=== PATIENT | male | born 1960 | race Two or more races ===

== ENCOUNTER 2023-08-31 16:31 | Inpatient (IN) | payer OTHER ==
[~2023-08-31] VITALS: Ht 188 cm; Wt 102.1 kg
[2023-08-31] MEDS ORDERED: TRIJARDY XR 251 EACH PO (18:11)
[2023-08-31] MEDS ORDERED: IRBESARTAN150 MG PO (18:12)
--- NOTE | 2023-08-31 18:18 | NUR ---
SE RECIBE PACIENTE ALERTA Y ORIENTADO X3. EL MISMO REFIERE VENIR POR PLAQUETAS EN 29, LABORATORIOS REALIZADOS EL LUISA DE HO. SE MIDEN S/V Y SE UBICA.
--- NOTE | 2023-08-31 20:08 | NUR ---
SE ORIENTA A PACIENTE Y FAMILIAR SOBRE TX MEDICO, REFIERE ENTENDER. SE REALIZAN MUESTRAS DE LABORATORIO BAJO MEDIDAS ASEPTICAS. PACIENTE MANEJADA POR MS.NOGUERA. PENDIENTE RE-EVALUACION MEDICA.
[2023-08-31 20:53] LABS: INR 1.05; PARTIAL THROMBOPLASTIN TIME 27.7 SECONDS (22.0-34.0)
[2023-08-31 21:03] LABS: ALBUMIN 4.2 gm/dL (3.4-5.0); BILIRUBIN TOTAL 0.61 mg/dL (0.3-1.2); CALCIUM 9.3 mg/dL (8.5-10.1); CREATININE SERUM 1.5 mg/dL (0.70-1.30); GFR 47.27; GLOBULINA 3.8 G/DL (2.4-3.5); POTASSIUM 4.57 mEq/L (3.5-5.1)
[2023-08-31 21:11] LABS: PH,URINE 5.5 (5.0-8.0); URINE APPEARANCE Clear; URINE BILIRRUBIN Negative (NEGATIVE); URINE BLOOD Negative; URINE COLOR Yellow; URINE LEUKOCYTE Negative; URINE NITRATE Negative; URINE PROTEIN Negative (NEGATIVE); URINE UROBILINOGEN 0.2 E.U./dl
[2023-08-31 21:16] LABS: URINE BACTERIA 1.2 uL (0.0-1933); URINE EPITHELIAL CELLS 0.3 uL (0.0-38.8); URINE GLUCOSE >=1000 MG/DL (NEGATIVE); URINE RBC 0.7 uL (0.0-20.8); URINE WBC 0.4 uL (0.0-23.2)
[2023-08-31 22:29] LABS: HEMATOCRIT 39.7 % (39.0-48.0); HEMOGLOBIN 13.4 g/dL (13-16.00); RED BLOOD COUNT 4.88 M/uL (4.00-6.00)
[2023-08-31 22:30] LABS: MEAN CELL VOLUME 81.4 fL (80.0-100.00); MEAN CORPUSCULAR HEMOGLOBIN 27.5 pg (27.00-32.0); MEAN CORPUSCULAR HGB CONC 33.8 g/dl (32.0-36.0)
[2023-08-31 22:36] LABS: PLATELET COUNT 30 K/uL (150-450)
[2023-08-31] MEDS ORDERED: 0.9 % SODIUM CHLORIDE 500 ML IV ONE (22:45)
--- NOTE | 2023-09-01 02:25 | NUR ---
SORIENTA A PTE SOBRE TX MEDICO Y EL MISMO REFIERE ENTENDER. SE LE ADMINISTRA A PTE MEDICAMENTO ELIZABETH ORDEN MEDICA BAJO MEDIDAS ASEPTICAS. PTE REFIERE NO QUERER QUE LE CANALICEN SEGUNDA VENA.
[2023-09-01 06:30] LABS: HEMATOCRIT 39.9 % (39.0-48.0); HEMOGLOBIN 13.4 g/dL (13-16.00); MEAN CELL VOLUME 80.2 fL (80.0-100.00); MEAN CORPUSCULAR HEMOGLOBIN 26.9 pg (27.00-32.0); MEAN CORPUSCULAR HGB CONC 33.6 g/dl (32.0-36.0); RED BLOOD COUNT 4.98 M/uL (4.00-6.00); RED CELL DISTRIBUTION WIDTH 15.1 % (11.5-14.5)
[2023-09-01 07:14] LABS: PLATELET COUNT 20 K/uL (150-450)
[2023-09-01 07:15] LABS: PLT IN CITRATE 21 K/uL (150-450)
--- NOTE | 2023-09-01 07:25 | NUR ---
SE RECIBE PTE MASCULINO DE 63 YRS ALERTA CONCIENTE Y TRANQUILO, EN SHELLIE CON BARBADAS ELEVADA. PTE OBSERVA PTE CON .9NSS A 125 ML HS.Y SE MANTIENEN EN ESPERA DE MEDICO CONSULTOR SPIKE RADFORD.SE LE NOTIFICA VALOR PANICO DE PLAQUIETAS A EL RUPERTO RADFORD. SE MANTIENE AL MOMENTO LULI DE DOLOR, SE MANTIENE BAJO OBSERVACION.
[2023-09-01] MEDS ORDERED: 0.9 % SODIUM CHLORIDE 1,000 ML IV SCH (10:00)
[2023-09-01] MEDS ORDERED: IRBESARTAN 150 MG TABLET PO SCH (10:02)
[2023-09-01] MEDS ORDERED: Cyanocobalamin/Mecobalamin 1 TAB.SL SL SCH (12:00)
[2023-09-01] MEDS ORDERED: ASCORBIC ACID 500 MG TABLET PO SCH (12:00)
[2023-09-01] MEDS ORDERED: MULTIVIT INFUSN,ADULT 4,VIT K 10 ML VIAL IV SCH (12:00)
[2023-09-01] MEDS ORDERED: VITAMIN B COMPLEX 1 EACH PO SCH (13:00)
[2023-09-01 13:32] LABS: ALBUMIN 4.2 gm/dL (3.4-5.0); BILIRUBIN TOTAL 0.63 mg/dL (0.3-1.2); CALCIUM 9.2 mg/dL (8.5-10.1); CREATININE SERUM 1.15 mg/dL (0.70-1.30); GFR 64.23; POTASSIUM 4.44 mEq/L (3.5-5.1); TOTAL PROTEIN 8.2 gm/dL (6.4-8.2)
[2023-09-01 13:47] LABS: COL ADP >300 SECONDS (56-102); COL EPI >300 SECONDS (82-175)
[2023-09-01 13:57] LABS: FERRITIN 251.8 NG/ML (26-388)
[2023-09-01 14:31] LABS: FOLIC ACID 14.77 ng/ml (4.78-20)
[2023-09-01] MEDS ORDERED: THIAMINE HCL 100 MG TABLET PO SCH (17:00)
[2023-09-01] MEDS ORDERED: FUROsemide 20 MG/2 ML VIAL IV SCH (18:30)
[2023-09-01 20:43] LABS: INR 1.02; PROTHROMBIN TIME 10.7 SECONDS (9.0-11.5)
[2023-09-01 21:42] LABS: HEMATOCRIT 40.5 % (39.0-48.0); HEMOGLOBIN 13.6 g/dL (13-16.00); MEAN CELL VOLUME 81.3 fL (80.0-100.00); MEAN CORPUSCULAR HEMOGLOBIN 27.2 pg (27.00-32.0); MEAN CORPUSCULAR HGB CONC 33.5 g/dl (32.0-36.0); RED BLOOD COUNT 4.98 M/uL (4.00-6.00); RED CELL DISTRIBUTION WIDTH 15.1 % (11.5-14.5)
[2023-09-01 21:51] LABS: COL ADP 263 SECONDS (56-102)
[2023-09-01 21:52] LABS: COL EPI >300 SECONDS (82-175)
[2023-09-01 21:55] LABS: PLATELET COUNT 21 K/uL (150-450)
[2023-09-02 15:16] LABS: PH,URINE 6.5 (5.0-8.0); URINE APPEARANCE Clear; URINE BILIRRUBIN Negative (NEGATIVE); URINE BLOOD Negative; URINE COLOR Yellow; URINE LEUKOCYTE Negative; URINE NITRATE Negative; URINE PROTEIN Negative (NEGATIVE); URINE UROBILINOGEN 0.2 E.U./dl
[2023-09-02 15:21] LABS: URINE RBC 3.3 uL (0.0-20.8)
[2023-09-02 15:38] LABS: BILIRUBIN TOTAL 0.64 mg/dL (0.3-1.2); BILIRUBIN,CONJUGATED 0.21 mg/dL (0.0-0.2); BILIRUBIN,UNCONJUGATED 0.43 mg/dL (0.0-0.6); TOTAL PROTEIN 7.3 gm/dL (6.4-8.2)
[2023-09-02 16:59] LABS: URINE BACTERIA 3.7 uL (0.0-1933); URINE GLUCOSE >=1000 MG/DL (NEGATIVE); URINE WBC 0.4 uL (0.0-23.2)
[2023-09-02 21:27] LABS: HEMATOCRIT 43.7 % (39.0-48.0); HEMOGLOBIN 14.6 g/dL (13-16.00); MEAN CELL VOLUME 81.5 fL (80.0-100.00); MEAN CORPUSCULAR HEMOGLOBIN 27.3 pg (27.00-32.0); MEAN CORPUSCULAR HGB CONC 33.4 g/dl (32.0-36.0); RED BLOOD COUNT 5.36 M/uL (4.00-6.00); RED CELL DISTRIBUTION WIDTH 15.2 % (11.5-14.5)
[2023-09-02 21:28] LABS: PLATELET COUNT 57 K/uL (150-450)
[2023-09-03 09:39] LABS: PLT IN CITRATE 48 K/uL (150-450)
[2023-09-03 10:39] LABS: PLATELET COUNT 44 K/uL (150-450)
[2023-09-04 06:49] LABS: PLT IN CITRATE 40 K/uL (150-450)
[2023-09-04 06:53] LABS: HEMATOCRIT 39.9 % (39.0-48.0); HEMOGLOBIN 13.7 g/dL (13-16.00); MEAN CELL VOLUME 79.7 fL (80.0-100.00); MEAN CORPUSCULAR HEMOGLOBIN 27.3 pg (27.00-32.0); MEAN CORPUSCULAR HGB CONC 34.2 g/dl (32.0-36.0); RED BLOOD COUNT 5.01 M/uL (4.00-6.00); RED CELL DISTRIBUTION WIDTH 15.4 % (11.5-14.5)
[2023-09-04 06:54] LABS: PLATELET COUNT 40 K/uL (150-450)
[2023-09-04 07:11] LABS: ALBUMIN 4.2 gm/dL (3.4-5.0); BILIRUBIN TOTAL 0.6 mg/dL (0.3-1.2); CALCIUM 9.4 mg/dL (8.5-10.1); CREATININE SERUM 1.11 mg/dL (0.70-1.30); GFR 66.91; GLOBULINA 3.3 G/DL (2.4-3.5); POTASSIUM 4.24 mEq/L (3.5-5.1); TOTAL PROTEIN 7.5 gm/dL (6.4-8.2)
[2023-09-04] MEDS ORDERED: BARIUM SULFATE 450 ML ORAL.SUSP PO NR (08:30)
[2023-09-04] MEDS ORDERED: PATIENTS OWN MEDICATION (MEDICAMENTO EN PISO) PO SCH (09:00)
[2023-09-04 11:49] LABS: COL ADP 80 SECONDS (56-102); COL EPI 143 SECONDS (82-175)
[2023-09-05] MEDS ORDERED: VITAMIN C500 M1 PO (17:42)
[2023-09-05] MEDS ORDERED: AVAPRO150 MG PO (17:42)
[2023-09-05] MEDS ORDERED: Neurin-Sl Tablet Sl SL (17:42)
[2023-09-05] MEDS ORDERED: B Complex PO (17:43)
[2023-09-05] MEDS ORDERED: THIAMINE HCL100 MG PO (17:43)
[2023-09-05] MEDS ORDERED: SYNJARDY XR 101 EACH PO (17:45)
[2023-09-05] MEDS ORDERED: SYNJARDY XR 251 EACH PO (18:06)
== END 2023-09-05 20:40 | disposition home or self-care (01) | DRG 813 ==
LOC: ER 16:32 → SEC-K 09-01 10:25 → SURH 09-01 10:25
PROVIDERS: Internal Medicine Hematology & Oncology; Nurse Practitioner Family; ADMIT Internal Medicine Cardiovascular Disease; ATTEND Internal Medicine Cardiovascular Disease
PROC: BW40ZZZ Ultrasonography of Abdomen (ICD-10-PCS; principal; 2023-09-01)
PROC: 30233R1 Transfusion of Nonautologous Platelets into Peripheral Vein, Percutaneous Approach (ICD-10-PCS; 2023-09-02)
PROC: BW21YZZ Computerized Tomography (CT Scan) of Abdomen and Pelvis using Other Contrast (ICD-10-PCS; 2023-09-04)
PROC: BW24YZZ Computerized Tomography (CT Scan) of Chest and Abdomen using Other Contrast (ICD-10-PCS; 2023-09-04)
PROC: BF2 Imaging, Hepatobiliary System and Pancreas, Computerized Tomography (CT Scan) (ICD-10-PCS; 2023-09-04)
DX: D69.6 Thrombocytopenia, unspecified (principal); K76.0 Fatty (change of) liver, not elsewhere classified; R16.1 Splenomegaly, not elsewhere classified; F10.20 Alcohol dependence, uncomplicated; I12.9 Hypertensive chronic kidney disease with stage 1 through stage 4 chronic kidney disease, or unspecified chronic kidney disease; E11.22 Type 2 diabetes mellitus with diabetic chronic kidney disease; N18.9 Chronic kidney disease, unspecified; Z79.4 Long term (current) use of insulin; M10.9 Gout, unspecified; H57.89 Other specified disorders of eye and adnexa

== ENCOUNTER → 2023-09-09 08:43 | Outpatient (CLI) | payer OTHER ==
[~2023-09-09 08:43] MED LIST: AVAPRO150 MG PO; B Complex PO; FAMOTIDINE20 MG PO; HUMALOG100 UNIT/2 SUBCUTANEO; IRBESARTAN150 MG PO; Lantus 1000 UNITS/10 SUBCUTANEO; Neurin-Sl Tablet Sl SL; RAYOS5 MG PO; SYNJARDY XR 101 EACH PO; SYNJARDY XR 251 EACH PO; THIAMINE HCL100 MG PO; TRIJARDY XR 251 EACH PO; VITAMIN C500 M1 PO
[2023-09-09 10:30] LABS: HEMATOCRIT 38.7 % (39.0-48.0); HEMOGLOBIN 12.9 g/dL (13-16.00); MEAN CELL VOLUME 80.1 fL (80.0-100.00); MEAN CORPUSCULAR HEMOGLOBIN 26.7 pg (27.00-32.0); MEAN CORPUSCULAR HGB CONC 33.3 g/dl (32.0-36.0); RED BLOOD COUNT 4.84 M/uL (4.00-6.00)
[2023-09-09 11:21] LABS: PLATELET COUNT 26 K/uL (150-450)
[2023-09-12 09:07] LABS: HEPATITIS A ANTIBODY IGG Negative (Negative); HEPATITIS A IGM Negative (Negative); HEPATITIS B CORE IGM Negative (Negative); HEPATITIS C VIRUS ANTIBODY Non Reactive (Non Reactive)
[2023-09-12 11:11] LABS: hav igm Negative (Negative); hcv Non Reactive (Non Reactive); hep b c Negative (Negative)
== END | disposition home or self-care (01) ==
LOC: LAB 08:43
PROVIDERS: ATTEND Internal Medicine Cardiovascular Disease
DX: B19.0 Unspecified viral hepatitis with hepatic coma (principal); B16.0 Acute hepatitis B with delta-agent with hepatic coma; D69.6 Thrombocytopenia, unspecified; B18.1 Chronic viral hepatitis B without delta-agent; B15.9 Hepatitis A without hepatic coma; B19.20 Unspecified viral hepatitis C without hepatic coma; B20 Human immunodeficiency virus [HIV] disease

== ENCOUNTER 2023-09-11 15:03 | Inpatient (IN) | payer OTHER ==
[~2023-09-11] VITALS: Ht 188 cm; Wt 102.5 kg
[~2023-09-11 15:03] MED LIST changes: -FAMOTIDINE20 MG PO; -HUMALOG100 UNIT/2 SUBCUTANEO; -Lantus 1000 UNITS/10 SUBCUTANEO; +METHYLPREDNISOLONE SOD SUCC 40 MG VIAL IV SCH; -RAYOS5 MG PO
[2023-09-11 15:51] LABS: HEMATOCRIT 38.9 % (39.0-48.0); HEMOGLOBIN 13.2 g/dL (13-16.00); MEAN CELL VOLUME 80.1 fL (80.0-100.00); MEAN CORPUSCULAR HEMOGLOBIN 27.1 pg (27.00-32.0); MEAN CORPUSCULAR HGB CONC 33.8 g/dl (32.0-36.0); RED BLOOD COUNT 4.86 M/uL (4.00-6.00)
[2023-09-11 16:13] LABS: INR 1.06; PARTIAL THROMBOPLASTIN TIME 28.7 SECONDS (22.0-34.0); PROTHROMBIN TIME 11.1 SECONDS (9.0-11.5)
[2023-09-11 16:16] LABS: MANUAL PLATELET COUNT 36
[2023-09-11 16:17] LABS: PLATELET COUNT 31 K/uL (150-450)
[2023-09-11] MEDS ORDERED: INSULIN LISPRO 1,000 UNIT/10 ML UNITS SUBCUTANEO PRN ×2 (16:45→20:30)
[2023-09-11] MEDS ORDERED: SODIUM CHLORIDE 0.45 % 1,000 ML IV SCH (16:45)
[2023-09-11] MEDS ORDERED: METHYLPREDNISOLONE SOD SUCC 125 MG VIAL IV STA (19:35)
[2023-09-11] MEDS ORDERED: DEXTROSE 50 % IN WATER 0.5 G/ML DISP.SYRIN IV PRN (20:30)
[2023-09-12] MEDS ORDERED: METHYLPREDNISOLONE SOD SUCC 40 MG VIAL IV SCH ×2 (05:00→18:00)
[2023-09-12 08:49] LABS: PLT IN CITRATE 34 K/uL (150-450)
[2023-09-12 08:56] LABS: HEMATOCRIT 42.9 % (39.0-48.0); HEMOGLOBIN 14.3 g/dL (13-16.00); MEAN CELL VOLUME 81.2 fL (80.0-100.00); MEAN CORPUSCULAR HEMOGLOBIN 27.1 pg (27.00-32.0); MEAN CORPUSCULAR HGB CONC 33.3 g/dl (32.0-36.0); RED BLOOD COUNT 5.29 M/uL (4.00-6.00); RED CELL DISTRIBUTION WIDTH 14.8 % (11.5-14.5)
[2023-09-12] MEDS ORDERED: IRBESARTAN 150 MG TABLET PO SCH (09:00)
[2023-09-12] MEDS ORDERED: FAMOTIDINE/PF 20 MG/2 ML VIAL IV SCH (09:00)
[2023-09-12] MEDS ORDERED: PREDNISONE 20 MG TABLET PO SCH (09:00)
[2023-09-12] MEDS ORDERED: Cyanocobalamin/Mecobalamin 1 TAB.SL SL SCH (09:00)
[2023-09-12 09:08] LABS: PLATELET COUNT 37 K/uL (150-450)
[2023-09-12 09:12] LABS: INR 1.07; PROTHROMBIN TIME 11.2 SECONDS (9.0-11.5)
[2023-09-13 08:10] LABS: PLT IN CITRATE 30 K/uL (150-450)
[2023-09-13 08:28] LABS: PLATELET COUNT 36 K/uL (150-450)
[2023-09-14] MEDS ORDERED: INSULIN GLARGINE,HUM.REC.ANLOG 1,000 UNITS/10 ML UNITS SUBCUTANEO SCH (23:15)
[2023-09-15 05:08] LABS: HEMATOCRIT 37.7 % (39.0-48.0); HEMOGLOBIN 12.3 g/dL (13-16.00); MEAN CELL VOLUME 81.4 fL (80.0-100.00); MEAN CORPUSCULAR HEMOGLOBIN 26.7 pg (27.00-32.0); MEAN CORPUSCULAR HGB CONC 32.8 g/dl (32.0-36.0); RED BLOOD COUNT 4.63 M/uL (4.00-6.00); RED CELL DISTRIBUTION WIDTH 15.2 % (11.5-14.5)
[2023-09-15 05:12] LABS: PLT IN CITRATE 40 K/uL (150-450)
[2023-09-15 05:32] LABS: CALCIUM 9.5 mg/dL (8.5-10.1); CREATININE SERUM 1.32 mg/dL (0.70-1.30); GFR 54.78; POTASSIUM 4.84 mEq/L (3.5-5.1)
[2023-09-15 05:45] LABS: PLATELET COUNT 35 K/uL (150-450)
[2023-09-15] MEDS ORDERED: FAMOtidine 20 MG TABLET PO SCH (09:00)
[2023-09-15] MEDS ORDERED: IRBESARTAN150 MG PO ×2 (16:51)
[2023-09-15] MEDS ORDERED: FAMOTIDINE20 MG PO ×2 (16:52)
[2023-09-15] MEDS ORDERED: SYNJARDY XR 251 EACH PO (16:53)
[2023-09-15] MEDS ORDERED: Neurin-Sl Tablet Sl SL (16:54)
[2023-09-15] MEDS ORDERED: THIAMINE HCL100 MG PO (16:54)
[2023-09-15] MEDS ORDERED: VITAMIN C500 M1 PO (16:54)
[2023-09-15] MEDS ORDERED: Lantus 1000 UNITS/10 SUBCUTANEO ×2 (16:54)
[2023-09-15] MEDS ORDERED: B Complex PO (16:54)
[2023-09-15] MEDS ORDERED: RAYOS5 MG PO ×2 (17:00)
[2023-09-15] MEDS ORDERED: HUMALOG100 UNIT/2 SUBCUTANEO ×2 (17:32)
== END 2023-09-15 19:31 | disposition home or self-care (01) | DRG 813 ==
LOC: MEDI 15:03
PROVIDERS: ADMIT Internal Medicine Cardiovascular Disease; ATTEND Internal Medicine Cardiovascular Disease
DX: D69.3 Immune thrombocytopenic purpura (principal); R16.2 Hepatomegaly with splenomegaly, not elsewhere classified; I10 Essential (primary) hypertension; E11.9 Type 2 diabetes mellitus without complications; Z79.84 Long term (current) use of oral hypoglycemic drugs
CPT/HCPCS: 240

== ENCOUNTER → 2023-09-18 12:09 | Outpatient (CLI) | payer OTHER ==
[~2023-09-18 12:09] MED LIST changes: +FAMOTIDINE20 MG PO; +HUMALOG100 UNIT/2 SUBCUTANEO; +Lantus 1000 UNITS/10 SUBCUTANEO; -METHYLPREDNISOLONE SOD SUCC 40 MG VIAL IV SCH; +RAYOS5 MG PO
[2023-09-18 12:45] LABS: HEMATOCRIT 41.9 % (39.0-48.0); HEMOGLOBIN 14.2 g/dL (13-16.00); MEAN CELL VOLUME 80.2 fL (80.0-100.00); MEAN CORPUSCULAR HEMOGLOBIN 27.1 pg (27.00-32.0); MEAN CORPUSCULAR HGB CONC 33.8 g/dl (32.0-36.0); RED BLOOD COUNT 5.23 M/uL (4.00-6.00); RED CELL DISTRIBUTION WIDTH 14.8 % (11.5-14.5)
[2023-09-18 12:46] LABS: PLATELET COUNT 59 K/uL (150-450)
[2023-09-18 13:00] LABS: ALBUMIN 4.4 gm/dL (3.4-5.0); BILIRUBIN TOTAL 1.08 mg/dL (0.3-1.2); CALCIUM 10.3 mg/dL (8.5-10.1); CREATININE SERUM 1.34 mg/dL (0.70-1.30); GFR 53.84; GLOBULINA 3.6 G/DL (2.4-3.5); POTASSIUM 5.56 mEq/L (3.5-5.1)
== END | disposition home or self-care (01) ==
LOC: LAB 12:09
PROVIDERS: ATTEND Internal Medicine Cardiovascular Disease
DX: D69.6 Thrombocytopenia, unspecified (principal)

== ENCOUNTER 2024-01-31 18:02 | Inpatient (IN) | payer OTHER ==
[~2024-01-31] VITALS: Ht 188 cm; Wt 102.5 kg
--- NOTE | 2024-01-31 18:16 | NUR ---
PTE ALERTA Y ORIENTADO X3. REFIERE TENER LAS PLAQUETAS EN [address] POLINA POPE. SE JAZMINE CAHTY Y SE UBICA
[2024-01-31 19:16] LABS: HEMATOCRIT 37.9 % (39.0-48.0); HEMOGLOBIN 12.6 g/dL (13-16.00); MEAN CELL VOLUME 77.9 fL (80.0-100.00); MEAN CORPUSCULAR HEMOGLOBIN 25.9 pg (27.00-32.0); MEAN CORPUSCULAR HGB CONC 33.2 g/dl (32.0-36.0); RED BLOOD COUNT 4.87 M/uL (4.00-6.00); RED CELL DISTRIBUTION WIDTH 15.7 % (11.5-14.5)
[2024-01-31 19:23] LABS: INR 1.05; PARTIAL THROMBOPLASTIN TIME 27.6 SECONDS (22.0-34.0); PROTHROMBIN TIME 11.4 SECONDS (9.0-11.5)
[2024-01-31 19:26] LABS: PLATELET COUNT 19 K/uL (150-450)
[2024-01-31 19:28] LABS: ALBUMIN 4.1 gm/dL (3.4-5.0); BILIRUBIN TOTAL 0.48 mg/dL (0.3-1.2); CALCIUM 9.3 mg/dL (8.5-10.1); CREATININE SERUM 1.39 mg/dL (0.70-1.30); GFR 51.61; GLOBULINA 3.3 G/DL (2.4-3.5); POTASSIUM 4.34 mEq/L (3.5-5.1); TOTAL PROTEIN 7.4 gm/dL (6.4-8.2)
[2024-01-31 19:47] LABS: PH,URINE 5.5 (5.0-8.0); URINE APPEARANCE Clear; URINE BILIRRUBIN Negative (NEGATIVE); URINE BLOOD Negative; URINE COLOR Yellow; URINE KETONE Negative (NEGATIVE); URINE LEUKOCYTE Negative; URINE NITRATE Negative; URINE PROTEIN Negative (NEGATIVE); URINE UROBILINOGEN 0.2 E.U./dl
[2024-01-31 19:51] LABS: URINE BACTERIA 3.6 uL (0.0-1933); URINE EPITHELIAL CELLS 0.6 uL (0.0-38.8); URINE GLUCOSE >=1000 MG/DL (NEGATIVE); URINE RBC 0.4 uL (0.0-20.8); URINE WBC 0.4 uL (0.0-23.2)
[2024-01-31] MEDS ORDERED: DEXAMETHASONE SODIUM PHOSP/PF 10 MG/ML VIAL IJ ONE (20:00)
--- NOTE | 2024-01-31 20:22 | NUR ---
SE ORIENTA PTE SOBRE TX MEDICO EL CUAL REFIERE ENTENDER.SE LE EXTRAEN MUESTRAS BAJO MEDIDAS ASEPTICAS,SE CANALIZA Y SE REALIZA EKG.
--- NOTE | 2024-01-31 20:54 | NUR ---
SE JAZMINE TUBOS PILOTOS Y SE REQUIZA 20 UNIDADES DE PLAQUETAS Y SE ENVIA A LABORATORIO. PTE CON RECORD. PTE FIRMA CONSENTIMIENTO DE TRANSFUCION Y SE COLCOA EN RECORD DE PTE.
[2024-01-31] MEDS ORDERED: SODIUM CHLORIDE 0.45 % 1,000 ML IV SCH (23:00)
[2024-01-31] MEDS ORDERED: METHYLPREDNISOLONE SOD SUCC 125 MG VIAL IV STA (23:09)
[2024-01-31] MEDS ORDERED: PANTOPRAZOLE SODIUM 40 MG TABLET.DR PO SCH (23:10)
[2024-01-31] MEDS ORDERED: METHYLPREDNISOLONE SOD SUCC 125 MG VIAL IV SCH (23:10)
[2024-01-31] MEDS ORDERED: INSULIN LISPRO 1,000 UNIT/10 ML UNITS SUBCUTANEO PRN (23:15)
[2024-01-31] MEDS ORDERED: DEXTROSE 50 % IN WATER 0.5 G/ML DISP.SYRIN IV PRN (23:15)
[2024-02-01 03:28] VITALS: BP 149/91
[2024-02-01] MEDS ORDERED: METHYLPREDNISOLONE SOD SUCC 40 MG VIAL IV SCH (09:00)
[2024-02-01 09:05] VITALS: BP 153/88; O2SAT 98
[2024-02-01 16:12] VITALS: BP 135/66; O2SAT 100
[2024-02-01] MEDS ORDERED: LOSARTAN POTASSIUM 100 MG TABLET PO STA (21:58)
[2024-02-01] MEDS ORDERED: INSULIN GLARGINE,HUM.REC.ANLOG 1,000 UNITS/10 ML UNITS SUBCUTANEO STA (22:01)
[2024-02-01 23:22] LABS: HEMATOCRIT 39.5 % (39.0-48.0); MEAN CELL VOLUME 78.4 fL (80.0-100.00); MEAN CORPUSCULAR HGB CONC 32.2 g/dl (32.0-36.0); RED BLOOD COUNT 5.04 M/uL (4.00-6.00); RED CELL DISTRIBUTION WIDTH 15.2 % (11.5-14.5)
[2024-02-01 23:35] LABS: HEMOGLOBIN 12.7 g/dL (13-16.00); MEAN CORPUSCULAR HEMOGLOBIN 25.1 pg (27.00-32.0); PLATELET COUNT 94 K/uL (150-450)
[2024-02-02 04:52] VITALS: BP 145/89; O2SAT 100
[2024-02-02 05:22] LABS: CALCIUM 10.3 mg/dL (8.5-10.1); GFR 54.31; POTASSIUM 4.37 mEq/L (3.5-5.1)
[2024-02-02 05:25] LABS: CREATININE SERUM 1.33 mg/dL (0.70-1.30)
[2024-02-02 11:05] VITALS: BP 156/89; O2SAT 97
[2024-02-02] MEDS ORDERED: SYNJARDY XR 251 EACH PO (14:16)
[2024-02-02] MEDS ORDERED: INSULIN LI100 UNIT/1 SUBCUTANEO (14:16)
[2024-02-02] MEDS ORDERED: FAMOTIDINE20 MG PO (14:16)
[2024-02-02] MEDS ORDERED: ORAPRED ODT10 MG PO ×2 (14:16)
[2024-02-02] MEDS ORDERED: IRBESARTAN150 MG PO (14:16)
[2024-02-02] MEDS ORDERED: MILLIPRED5 MG PO (14:16)
== END 2024-02-02 15:41 | disposition home or self-care (01) | DRG 816 ==
LOC: ER 18:03 → SEC-K 23:07 → SURG 02-02 01:02
PROVIDERS: General Practice; ADMIT Internal Medicine Cardiovascular Disease; ATTEND Internal Medicine Cardiovascular Disease
PROC: BW40ZZZ Ultrasonography of Abdomen (ICD-10-PCS; principal; 2024-01-31)
PROC: 30233K1 Transfusion of Nonautologous Frozen Plasma into Peripheral Vein, Percutaneous Approach (ICD-10-PCS; 2024-02-01)
PROC: 30233R1 Transfusion of Nonautologous Platelets into Peripheral Vein, Percutaneous Approach (ICD-10-PCS; 2024-02-01)
DX: D47.3 Essential (hemorrhagic) thrombocythemia (principal); E11.9 Type 2 diabetes mellitus without complications; Z79.4 Long term (current) use of insulin; I10 Essential (primary) hypertension

== ENCOUNTER 2024-04-04 11:57 | Inpatient (IN) | payer OTHER ==
[~2024-04-04] VITALS: Ht 188 cm; Wt 101.6 kg
[~2024-04-04 11:57] MED LIST changes: +INSULIN LI100 UNIT/1 SUBCUTANEO; +MILLIPRED5 MG PO; +ORAPRED ODT10 MG PO
--- NOTE | 2024-04-04 12:31 | NUR ---
SE RECIBE PTE ALERTA Y ORIENTADO X3. PTE PRESENTA ABCESO EN GLUTEO MAYOR RUBY. SE OBSERVA AREA DEL GLUTEO MAYOR EDEMATOSA Y CON ERITEMA. PTE REFIERE TENER ABCESO HACE 4 HUYNH Y REFIERE FRANCIE DOLOR AL SENTARSE. SE MIDEN S/V Y SE UBICA.
[2024-04-04] MEDS ORDERED: LIDOCAINE HCL 1% 10ML VIAL ONE (12:43)
[2024-04-04] MEDS ORDERED: 0.9 % SODIUM CHLORIDE 1,000 ML IV SCH (17:00)
[2024-04-04] MEDS ORDERED: METRONIDAZOLE/SODIUM CHLORIDE 500 MG/100 ML PIGGYBACK IV ONE ×2 (17:00→17:21)
[2024-04-04 17:30] LABS: HEMATOCRIT 39.8 % (39.0-48.0); HEMOGLOBIN 13.3 g/dL (13-16.00); MEAN CELL VOLUME 77.2 fL (80.0-100.00); MEAN CORPUSCULAR HEMOGLOBIN 25.7 pg (27.00-32.0); MEAN CORPUSCULAR HGB CONC 33.3 g/dl (32.0-36.0); RED BLOOD COUNT 5.16 M/uL (4.00-6.00); RED CELL DISTRIBUTION WIDTH 16.3 % (11.5-14.5)
[2024-04-04 17:32] LABS: PLATELET COUNT 105 K/uL (150-450)
[2024-04-04 17:34] LABS: ERYTHROCYTE SEDIMENTATION RATE 98 mm/hr
--- NOTE | 2024-04-04 17:44 | NUR ---
SE ORIENTA A PACIENTE SOBRE TRATAMIENTO MEDICO, REFIERE ENTENDER. SE COLECTAN MUESTRAS DE LABORATORIO Y SE CANALIZA A PACIENTE BAJO MEDIDAS ASEPTICAS. SE ADMINISTRAN MEDICAMENTOS ELIZABETH ORDEN MEDICA.
[2024-04-04 18:05] LABS: BILIRUBIN TOTAL 1.26 mg/dL (0.3-1.2); CALCIUM 9.5 mg/dL (8.5-10.1); CREATININE SERUM 1.38 mg/dL (0.70-1.30); GFR 52.04; GLOBULINA 3.6 G/DL (2.4-3.5); POTASSIUM 4.05 mEq/L (3.5-5.1); TOTAL PROTEIN 7.6 gm/dL (6.4-8.2)
[2024-04-04 18:15] LABS: C-REACTIVE PROTEIN 22.7 MG/DL (0.00-0.29)
[2024-04-04 18:33] LABS: INR 1.16; PARTIAL THROMBOPLASTIN TIME 33.2 SECONDS (22.0-34.0); PROTHROMBIN TIME 12.5 SECONDS (9.0-11.5)
[2024-04-04] MEDS ORDERED: ACETAMINOPHEN 500 MG GEL..CAP PO ONE ×2 (19:17→19:30)
[2024-04-04] MEDS ORDERED: SODIUM CHLORIDE 0.45 % 1,000 ML IV SCH (19:45)
[2024-04-04] MEDS ORDERED: VANCOMYCIN HCL 1,000 MG VIAL IV STA (19:52)
[2024-04-04] MEDS ORDERED: PIPERACILLIN/TAZOBACTAM SODIUM 2.25 GM in DEXTROSE 5 % IN WATER 50 ML IV SCH (19:58)
[2024-04-04] MEDS ORDERED: ACETAMINOPHEN 500 MG GEL..CAP PO PRN (20:00)
[2024-04-04] MEDS ORDERED: ONDANSETRON HCL 4 MG in DEXTROSE 5 % IN WATER 50 ML IV PRN (20:00)
[2024-04-04] MEDS ORDERED: VANCOMYCIN HCL 1,000 MG VIAL ONE (20:22)
[2024-04-04] MEDS ORDERED: FAMOTIDINE/PF 20 MG/2 ML VIAL ONE (20:22)
[2024-04-04] MEDS ORDERED: FAMOtidine 20 MG TABLET PO SCH (21:00)
[2024-04-04] MEDS ORDERED: VANCOMYCIN HCL 1,000 MG VIAL IV SCH (21:00)
[2024-04-04] MEDS ORDERED: FAMOTIDINE/PF 20 MG/2 ML VIAL IV SCH (21:29)
[2024-04-05 02:53] VITALS: BP 105/78
[2024-04-05 09:53] VITALS: BP 118/75; O2SAT 98
[2024-04-05 12:58] LABS: PH,URINE 5.5 (5.0-8.0); URINE APPEARANCE Clear; URINE BILIRRUBIN Negative (NEGATIVE); URINE BLOOD Negative; URINE COLOR Yellow; URINE KETONE Negative (NEGATIVE); URINE LEUKOCYTE Negative; URINE NITRATE Negative; URINE PROTEIN Negative (NEGATIVE)
[2024-04-05 13:04] LABS: URINE BACTERIA 2.4 uL (0.0-1933); URINE EPITHELIAL CELLS 1.1 uL (0.0-38.8); URINE GLUCOSE >=1000 MG/DL (NEGATIVE); URINE RBC 0.4 uL (0.0-20.8); URINE WBC 0.9 uL (0.0-23.2)
[2024-04-05 16:59] VITALS: BP 135/82; O2SAT 98
[2024-04-05] MEDS ORDERED: LACTOBACILLUS ACIDOPHILUS 1 CAP CAP PO SCH (17:00)
[2024-04-05] MEDS ORDERED: CHLORHEXIDINE GLUCONATE 120 ML BOTTLE TOP SCH (17:00)
[2024-04-06 02:50] VITALS: BP 122/72; O2SAT 97
[2024-04-06 10:04] VITALS: BP 129/82; O2SAT 98
[2024-04-06 16:07] VITALS: BP 128/61; O2SAT 98
[2024-04-06] MEDS ORDERED: CIPROFLOXACIN IN 5 % DEXTROSE 200 ML IV SCH (17:00)
[2024-04-06] MEDS ORDERED: TEMAZEPAM 15 MG CAPSULE PO PRN (21:00)
[2024-04-07 00:35] VITALS: BP 117/64
[2024-04-07 07:09] LABS: HEMATOCRIT 34.4 % (39.0-48.0); HEMOGLOBIN 11.3 g/dL (13-16.00); MEAN CORPUSCULAR HEMOGLOBIN 25.7 pg (27.00-32.0); MEAN CORPUSCULAR HGB CONC 32.9 g/dl (32.0-36.0); RED BLOOD COUNT 4.41 M/uL (4.00-6.00); RED CELL DISTRIBUTION WIDTH 15.5 % (11.5-14.5)
[2024-04-07 08:18] LABS: PLATELET COUNT 94 K/uL (150-450)
[2024-04-07 09:28] VITALS: BP 120/75; O2SAT 98
[2024-04-07] MEDS ORDERED: DIPHENHYDRAMINE HCL 50 MG/ML VIAL 1ML IV NR ×2 (10:15→16:30)
[2024-04-07] MEDS ORDERED: METHYLPREDNISOLONE SOD SUCC 40 MG VIAL IV NR ×2 (10:15→16:30)
[2024-04-07 17:02] VITALS: BP 110/70; O2SAT 97
[2024-04-08 00:40] VITALS: BP 150/76
[2024-04-08 07:30] LABS: ALBUMIN 3.2 gm/dL (3.4-5.0); BILIRUBIN TOTAL 0.69 mg/dL (0.3-1.2); CALCIUM 9.6 mg/dL (8.5-10.1); CREATININE SERUM 1.05 mg/dL (0.70-1.30); GFR 71.34; GLOBULINA 3.9 G/DL (2.4-3.5); POTASSIUM 5.11 mEq/L (3.5-5.1); TOTAL PROTEIN 7.1 gm/dL (6.4-8.2)
[2024-04-08] MEDS ORDERED: (FF) Daptomycin 50 MG/ML IV SCH (09:00)
[2024-04-08 09:20] VITALS: BP 124/76; O2SAT 98
[2024-04-08 16:14] VITALS: BP 102/61; O2SAT 100
[2024-04-09 01:30] VITALS: BP 127/67
[2024-04-09 08:35] VITALS: BP 140/80
[2024-04-09 15:05] LABS: HEMATOCRIT 37.4 % (39.0-48.0); HEMOGLOBIN 12.1 g/dL (13-16.00); MEAN CELL VOLUME 78.1 fL (80.0-100.00); MEAN CORPUSCULAR HEMOGLOBIN 25.2 pg (27.00-32.0); MEAN CORPUSCULAR HGB CONC 32.3 g/dl (32.0-36.0); RED BLOOD COUNT 4.78 M/uL (4.00-6.00); RED CELL DISTRIBUTION WIDTH 15.6 % (11.5-14.5)
[2024-04-09 15:07] LABS: PLATELET COUNT 125 K/uL (150-450)
[2024-04-09 16:00] VITALS: BP 140/87; O2SAT 97
[2024-04-09] MEDS ORDERED: CLOTRIMAZOLE 30 GM TUBE TOP SCH (17:00)
[2024-04-09] MEDS ORDERED: PIPERACILLIN/TAZOBACTAM SODIUM 4.5 GM VIAL IV NR (19:00)
[2024-04-10 00:26] VITALS: BP 131/80
[2024-04-10] MEDS ORDERED: PIPERACILLIN/TAZOBACTAM SODIUM 4.5 GM VIAL IV SCH (01:00)
[2024-04-10 08:41] VITALS: BP 119/83; O2SAT 97
[2024-04-10 17:29] VITALS: BP 134/78; O2SAT 98
[2024-04-11] VITALS: BP 136/73; O2SAT 98
[2024-04-11 08:15] VITALS: BP 122/70
[2024-04-11 12:51] LABS: HEMOGLOBIN 13.6 g/dL (13-16.00); MEAN CELL VOLUME 77.2 fL (80.0-100.00); MEAN CORPUSCULAR HEMOGLOBIN 25.5 pg (27.00-32.0); RED BLOOD COUNT 5.31 M/uL (4.00-6.00); RED CELL DISTRIBUTION WIDTH 15.9 % (11.5-14.5)
[2024-04-11 12:52] LABS: PLATELET COUNT 118 K/uL (150-450)
[2024-04-11 14:07] LABS: ALBUMIN 3.4 gm/dL (3.4-5.0); BILIRUBIN TOTAL 0.78 mg/dL (0.3-1.2); CALCIUM 9.6 mg/dL (8.5-10.1); CREATININE SERUM 1.09 mg/dL (0.70-1.30); GFR 68.32; GLOBULINA 4.1 G/DL (2.4-3.5); POTASSIUM 4.53 mEq/L (3.5-5.1); TOTAL PROTEIN 7.5 gm/dL (6.4-8.2)
[2024-04-11 16:52] VITALS: BP 123/79; O2SAT 98
[2024-04-12] VITALS: BP 127/82; O2SAT 97
[2024-04-12 09:05] VITALS: BP 135/70
[2024-04-12 16:34] VITALS: BP 115/71; O2SAT 96
[2024-04-13 02:09] VITALS: BP 131/84
[2024-04-13 08:43] VITALS: BP 115/74; O2SAT 98
[2024-04-13 15:54] VITALS: BP 107/52; O2SAT 98
[2024-04-13] MEDS ORDERED: TEMAZEPAM 15 MG CAPSULE PO PRN (23:30)
[2024-04-14 02:22] VITALS: BP 130/82; O2SAT 99
[2024-04-14 08:54] VITALS: BP 97/63; O2SAT 99
[2024-04-14 17:25] VITALS: BP 113/71; O2SAT 99
[2024-04-15 02:17] VITALS: BP 137/80
[2024-04-15 06:31] LABS: HEMATOCRIT 37.6 % (39.0-48.0); HEMOGLOBIN 12.5 g/dL (13-16.00); MEAN CELL VOLUME 77.3 fL (80.0-100.00); MEAN CORPUSCULAR HEMOGLOBIN 25.6 pg (27.00-32.0); MEAN CORPUSCULAR HGB CONC 33.2 g/dl (32.0-36.0); RED BLOOD COUNT 4.87 M/uL (4.00-6.00); RED CELL DISTRIBUTION WIDTH 15.8 % (11.5-14.5)
[2024-04-15 06:41] LABS: PLATELET COUNT 110 K/uL (150-450)
[2024-04-15 09:15] VITALS: BP 111/67; O2SAT 98
[2024-04-15 16:19] VITALS: BP 123/79; O2SAT 97
[2024-04-16 00:58] VITALS: BP 123/78; O2SAT 97
[2024-04-16 09:10] VITALS: BP 124/75; O2SAT 97
[2024-04-16 17:48] VITALS: BP 110/73; O2SAT 96
[2024-04-17 00:50] VITALS: BP 137/78; O2SAT 99
[2024-04-17 09:15] VITALS: BP 111/75; O2SAT 97
[2024-04-17] MEDS ORDERED: PIPERACILLIN/TAZOBACTAM SODIUM 4.5 GM in 0.9 % SODIUM CHLORIDE 100 ML IV NR (10:45)
[2024-04-17 16:55] VITALS: BP 116/76; O2SAT 99
[2024-04-17] MEDS ORDERED: PIPERACILLIN/TAZOBACTAM SODIUM 4.5 GM in 0.9 % SODIUM CHLORIDE 100 ML IV SCH (17:00)
[2024-04-18 01:12] VITALS: BP 123/75
[2024-04-18 06:21] LABS: ALBUMIN 3.8 gm/dL (3.4-5.0); BILIRUBIN TOTAL 0.59 mg/dL (0.3-1.2); CALCIUM 9.7 mg/dL (8.5-10.1); CREATININE SERUM 1.03 mg/dL (0.70-1.30); GFR 72.94; GLOBULINA 4.6 G/DL (2.4-3.5); POTASSIUM 4.51 mEq/L (3.5-5.1); TOTAL PROTEIN 8.4 gm/dL (6.4-8.2)
[2024-04-18 08:15] LABS: HEMATOCRIT 42.2 % (39.0-48.0); HEMOGLOBIN 13.4 g/dL (13-16.00); MEAN CELL VOLUME 78.5 fL (80.0-100.00); MEAN CORPUSCULAR HEMOGLOBIN 24.9 pg (27.00-32.0); MEAN CORPUSCULAR HGB CONC 31.8 g/dl (32.0-36.0); RED BLOOD COUNT 5.38 M/uL (4.00-6.00)
[2024-04-18 08:23] LABS: PLATELET COUNT 146 K/uL (150-450)
[2024-04-18 08:35] VITALS: BP 120/68
[2024-04-18 16:38] VITALS: BP 95/59; O2SAT 97
[2024-04-19 00:22] VITALS: BP 123/81; O2SAT 98
[2024-04-19 08:54] VITALS: BP 137/90; O2SAT 96
[2024-04-19 16:45] VITALS: BP 115/78; O2SAT 97
[2024-04-20 01:08] VITALS: BP 120/75; O2SAT 94
[2024-04-20 09:11] VITALS: BP 117/72; O2SAT 97
[2024-04-20 15:56] VITALS: BP 120/79; O2SAT 96
[2024-04-21 01:19] VITALS: BP 121/72; O2SAT 96
[2024-04-21 08:48] VITALS: BP 107/70; O2SAT 98
[2024-04-21 17:23] VITALS: BP 120/78; O2SAT 98
[2024-04-22 01:17] VITALS: BP 115/78; O2SAT 96
[2024-04-22 06:46] LABS: HEMATOCRIT 37.6 % (39.0-48.0); HEMOGLOBIN 12.1 g/dL (13-16.00); MEAN CELL VOLUME 77.7 fL (80.0-100.00); MEAN CORPUSCULAR HEMOGLOBIN 25.1 pg (27.00-32.0); MEAN CORPUSCULAR HGB CONC 32.3 g/dl (32.0-36.0); PLATELET COUNT 133 K/uL (150-450); RED BLOOD COUNT 4.84 M/uL (4.00-6.00); RED CELL DISTRIBUTION WIDTH 16.2 % (11.5-14.5)
[2024-04-22 06:56] LABS: ERYTHROCYTE SEDIMENTATION RATE 112 mm/hr
[2024-04-22 07:22] LABS: ALBUMIN 3.4 gm/dL (3.4-5.0); BILIRUBIN TOTAL 0.61 mg/dL (0.3-1.2); CALCIUM 9.6 mg/dL (8.5-10.1); CREATININE SERUM 0.99 mg/dL (0.70-1.30); GFR 76.35; POTASSIUM 3.67 mEq/L (3.5-5.1); TOTAL PROTEIN 7.4 gm/dL (6.4-8.2)
[2024-04-22 08:19] VITALS: BP 133/89
[2024-04-22 16:55] VITALS: BP 120/80; O2SAT 97
[2024-04-23 01:03] VITALS: BP 122/80; O2SAT 98
[2024-04-23 08:00] VITALS: BP 137/91; O2SAT 98
[2024-04-23 16:56] VITALS: BP 126/83; O2SAT 97
[2024-04-23] MEDS ORDERED: METROnidazole 500 MG TABLET PO SCH (17:00)
[2024-04-23] MEDS ORDERED: levoFLOXacin IN DEXTROSE 5 % 150 ML IV SCH (17:00)
[2024-04-24 02:01] VITALS: BP 127/84; O2SAT 96
[2024-04-24 08:34] VITALS: BP 121/79; O2SAT 96
[2024-04-24 17:07] VITALS: BP 115/77; O2SAT 96
[2024-04-25 01:55] VITALS: BP 114/75; O2SAT 97
[2024-04-25 08:00] VITALS: BP 126/81
[2024-04-25] MEDS ORDERED: METRONIDAZOLE500 MG PO (14:18)
[2024-04-25] MEDS ORDERED: INTESTINEX680 M1 PO (14:18)
[2024-04-25] MEDS ORDERED: CLOTRIMAZOLE45 G1 TOP (14:18)
[2024-04-25] MEDS ORDERED: LEVOFLOXACIN750 MG PO (14:18)
[2024-04-25] MEDS ORDERED: RESTORIL15 MG PO (14:18)
== END 2024-04-25 14:52 | DRG 982 ==
LOC: ER 12:00 → MEDI 21:23 → SEC-K 21:23 → MEDJ 21:23 → MEDI 04-05 14:35
PROVIDERS: General Practice; Internal Medicine Infectious Disease; Specialist; ADMIT Internal Medicine Cardiovascular Disease; ATTEND Internal Medicine Cardiovascular Disease
PROC: 0JDB0ZZ Extraction of Perineum Subcutaneous Tissue and Fascia, Open Approach (ICD-10-PCS; principal; 2024-04-04)
PROC: BW21YZZ Computerized Tomography (CT Scan) of Abdomen and Pelvis using Other Contrast (ICD-10-PCS; 2024-04-07)
PROC: 0JDB0ZZ Extraction of Perineum Subcutaneous Tissue and Fascia, Open Approach (ICD-10-PCS; 2024-04-11)
PROC: 0JBB0ZX Excision of Perineum Subcutaneous Tissue and Fascia, Open Approach, Diagnostic (ICD-10-PCS; 2024-04-13)
PROC: 0JBB0ZX Excision of Perineum Subcutaneous Tissue and Fascia, Open Approach, Diagnostic (ICD-10-PCS; 2024-04-16)
PROC: 0JDB0ZZ Extraction of Perineum Subcutaneous Tissue and Fascia, Open Approach (ICD-10-PCS; 2024-04-19)
DX: K61.0 Anal abscess (principal); D69.3 Immune thrombocytopenic purpura; L02.31 Cutaneous abscess of buttock; L03.315 Cellulitis of perineum; B96.5 Pseudomonas (aeruginosa) (mallei) (pseudomallei) as the cause of diseases classified elsewhere; E11.9 Type 2 diabetes mellitus without complications; Z79.4 Long term (current) use of insulin; I10 Essential (primary) hypertension; B96.4 Proteus (mirabilis) (morganii) as the cause of diseases classified elsewhere; B95.1 Streptococcus, group B, as the cause of diseases classified elsewhere; B95.2 Enterococcus as the cause of diseases classified elsewhere; B96.89 Other specified bacterial agents as the cause of diseases classified elsewhere